=== PATIENT | female | born 1995 | race Caucasian/White ===

== ENCOUNTER 2016-09-18 12:42 | Outpatient (CLI) | payer OTHER, MEDICAID | END 2016-09-18 12:43 | disposition home or self-care (01) | LOC: NC 12:42 | PROVIDERS: ATTEND Advanced Practice Midwife | DX: O24.410 Gestational diabetes mellitus in pregnancy, diet controlled (principal); O26.892 Other specified pregnancy related conditions, second trimester; E66.3 Overweight; Z3A.17 17 weeks gestation of pregnancy ==

== ENCOUNTER 2016-10-28 13:37 | Outpatient (CLI) | payer OTHER, MEDICAID | END 2016-10-28 13:38 | disposition home or self-care (01) | LOC: NC 13:37 | PROVIDERS: ATTEND Advanced Practice Midwife | DX: O24.419 Gestational diabetes mellitus in pregnancy, unspecified control (principal) ==

== ENCOUNTER 2016-11-04 13:45 | Outpatient (CLI) | payer OTHER, MEDICAID | END 2016-11-04 13:46 | disposition home or self-care (01) | LOC: NC 13:45 | PROVIDERS: ATTEND Family Medicine | DX: O24.419 Gestational diabetes mellitus in pregnancy, unspecified control (principal) ==

== ENCOUNTER 2016-11-27 13:50 | Outpatient (CLI) | payer OTHER, MEDICAID | END 2016-11-27 13:51 | disposition home or self-care (01) | LOC: NC 13:50 | PROVIDERS: ATTEND Family Medicine | DX: O24.410 Gestational diabetes mellitus in pregnancy, diet controlled (principal); Z71.3 Dietary counseling and surveillance; E66.3 Overweight ==